=== PATIENT | female | born 1935 | race Caucasian/White ===

== ENCOUNTER 2019-05-03 09:59 | Outpatient (CLI) | payer MEDICARE ==
--- NOTE | 2019-05-03 12:25 | BD ---
BONE DENSITOMETRY: INDICATION: Postmenopausal osteoporosis screening. FINDINGS: Lumbar Spine: BMD (g/cm2) L1 0.854 T-Score: -1.2 L2 0.820 T-Score: -1.9 L3 0.742 T-Score: -3.1 L4 0.662 T-Score: -3.6 L1-L4 0.759 T-Score: -2.6 Prior total lumbar density: 07/08/2016: 0.752 06/20/14: 0.726 Femoral Neck: 0.568 T-Score: -2.5 Total Femur: 0.748 T-Score: -1.6 Femoral neck density: 07/08/2016: 0.670 06/20/14: 0.680 Impression: Bone mineral density of the lumbar spine and femoral both indicate osteoporosis. Slight increased de nsity when compared to prior studies as noted above. POS: STEVEN
== END 2019-05-03 10:00 | disposition home or self-care (01) ==
LOC: BICMAMMO 09:59
PROVIDERS: ATTEND Family Medicine
DX: Z13.820 Encounter for screening for osteoporosis (principal); M81.0 Age-related osteoporosis without current pathological fracture; Z78.0 Asymptomatic menopausal state
CPT/HCPCS: 77080